=== PATIENT | female | born 1945 | race Caucasian/White ===

== ENCOUNTER 2017-11-06 11:39 | Day surgery (SDC) | payer OTHER, SELFPAY ==
[2017-11-02 07:59] VITALS: BMI 21.7
[2017-11-06] VITALS (8 sets, daily range): BP systolic 91–131; BP diastolic 51–75; PULSE 62–96; RESP 14–16; TEMP 36–37.1; O2SAT 95–97; BMI 21.7
[2017-11-06] MEDS: LACTATED RINGERS 1,000 ML 42 ML IV (12:34)
--- NOTE | 2017-11-06 13:15 | PM.PREOP ---
Pre-operative Note Interval Note Pre-op Check: History & Physical Reviewed by Physician and Exam Performed H&P completed within 30 days and has changed as indicated here:: Patient seen and examined in the preoperative area. History physical examination as documented on 10/31/2017 has not changed. Proceed with examination under anesthesia and possible fistulotomy as planned today.
[2017-11-06] MEDS: CEFOTETAN 2 GM/50 ML PIGGYBACK IV (13:30)
--- NOTE | 2017-11-06 14:03 | SUR.OPER ---
Prone on padded OR bed, head in foam head support, gel chest rolls, gel pad under knees, pillow under lower legs, toes free of pressure, arms secured on gel padded arm boards at <90 degrees abduction. Safety belt at thigh.
[2017-11-06] MEDS: BUPIVACAINE 0.5% (PF) 30 ML VIAL INJ (14:07)
[2017-11-06] MEDS: DIBUCAINE 1% OINT 28 GM 1 APPLIC TOP (14:10)
--- NOTE | 2017-11-06 14:29 | PM.OP.1 ---
Operative Date/Time/Diagnoses - Date of procedure: 11/06/17 Time of procedure: 14:29 Pre-op diagnosis: Anal fistula Post-op diagnosis: same Procedure & Clinicians Procedure: 1. Examination under anesthesia 2. Anoscopy 3. Anal fistulotomy Same procedure as scheduled: Yes Indications: 71-year-old female who presented with drainage from the perianal area. Examination and evaluation were consistent with fistula. She was recommended to undergo examination under anesthesia with potential fistulotomy. Click Yes if Unassisted: Yes Anesthesia Type: General Operative Notes Findings: 1. Perianal fistula superficial to anal sphincter muscles in the left posterior quadrant at approximately 7:00 position 2. No evidence of anal disease or other fistulas 3. No evidence of proctitis 4. No evidence of abscess Closure Type: not applicable (Fistulotomy site left open to heal by secondary intention) Specimen(s): none sent Implants & Drains: None Estimated Blood Loss (mL): 10 Blood products transfused: none Procedure in detail: After obtaining informed consent the patient was brought to the operating room and left supine on the gurney. After satisfactory induction of anesthesia she was placed in prone hernan-knife position. All pressure points were padded appropriately. Buttocks were taped apart. Anal region was prepped and draped in usual sterile fashion. A SCOAP time-out was performed per standard protocol. Digital rectal examination revealed mildly enlarged right lateral external hemorrhoid but without evidence of thrombosis or inflammation. There was a sentinel pile in the left posterior quadrant of the anal region at the 7 o'clock position with a small residual fistula tract in the skin several cm from the anoderm. No expression of pus. No masses. No obvious abscesses. No other abnormalities were appreciated. The Alvaradosal leve anoscope was brought onto the field and meticulous examination was performed. The anal glands and papillae were probed gently. The only significant finding was evidence of a fistula tract extending at the 7 o'clock position into the anal gland at that level. A 00 lacrimal probe was placed through the fistula tract at its distal end point in the skin and gently used to localize the fistula tract. Tract was found to be contiguous with the previously appreciated sentinel pile and associated anal gland. The lacrimal probe was placed entirely through the tract into the anal canal. Great care was taken to avoid creating a false passage. Bovie was used to perform a fistulotomy and the tract was left open. There was no significant granulation or pus present. Great care was taken avoid injury to the underlying sphincter muscle which was exposed but not divided. Hemostasis was achieved with the Bovie. Area was irrigated with copious amounts of sterile saline solution. Hemostasis was once again noted. A large piece of Gel-Foam liberally coated in dubivicaine ointment was placed in the anal rectal canal. Sterile dressing with a mesh undergarment was applied. Patient was returned to the supine position on the [place] where anesthesia was then reversed. She was extubated in the operating room in stable condition. She was taken recovery at that time. Complications: none Condition: stable Disposition: PACU Plan for aftercare: 1. Follow up in 2 weeks in surgery clinic 2. Discharged home today
[2017-11-06] MEDS: OXYCODONE/ACETAMINOPHEN 5/325 TABLET 1 TAB PO (15:45)
== END 2017-11-06 15:59 | disposition home or self-care (01) ==
PROVIDERS: PCP Physician Assistant; Visit Provider Surgery
PROC: (CPT 45990; principal; 2017-11-06 13:00)
PROC: (CPT 46270; 2017-11-06 13:00)
DX: K60.3 Anal fistula (principal); E03.9 Hypothyroidism, unspecified; K64.4 Residual hemorrhoidal skin tags
CPT/HCPCS: 46270; J1100; J2250; J2405; J2704; J3010

== ENCOUNTER → 2018-05-22 10:17 | Outpatient (CLI) | payer OTHER, SELFPAY | PROVIDERS: PCP Physician Assistant; Visit Provider Physician Assistant | DX: M85.88 Other specified disorders of bone density and structure, other site (principal); Z78.0 Asymptomatic menopausal state | CPT/HCPCS: 77080 ==

== ENCOUNTER → 2019-02-20 13:05 | Outpatient (CLI) | payer OTHER, SELFPAY ==
--- NOTE | 2019-02-20 | DI.CT.S_ITS ---
PROCEDURE: CT SOFT TISSUE NECK WO CON INDICATIONS: GENERALIZED HYPERHIDROSIS TECHNIQUE: Non-contrast 3.0 mm axial sections acquired from the sella to the aortic arch. Additional oblique axial 3.0 mm sections acquired through the pharynx. 3 mm thick coronal and sagittal reformats were generated. For radiation dose reduction, the following was used: automated exposure control. COMPARISON: [facility], CT, CT CHEST WO CON, 02/20/2019, 14:14. FINDINGS: Image quality: Excellent. Lymph nodes: No enlarged lymph nodes seen throughout the neck. Vessels: Non-opacified vessels appear normal in caliber. Neck spaces: The oropharynx, nasopharynx, and pharynx demonstrate no mucosal lesions. The vocal cords, false vocal cords, pyriform sinuses, epiglottis, vallecula, and tongue base all appear normal. Extramucosal spaces appear unremarkable. Glands: The parotid and submandibular glands appear normal, without stones. Thyroid gland is normal. Miscellaneous: Visualized brain and orbits appear normal. Lung apices appear clear. There is a 3 mm calcified nodule in the right upper lobe, likely an old granuloma. Superficial soft tissues appear normal. IMPRESSION: 1. Unremarkable noncontrast enhanced CT of neck. 2. A small calcified granuloma in the right upper lobe. Dictated by: Audrey Mujica M.D. on 02/20/2019 at 18:54 Approved by: Audrey Mujica M.D. on 02/20/2019 at 18:57
--- NOTE | 2019-02-20 | DI.CT.S_ITS ---
PROCEDURE: CT CHEST WO CON INDICATIONS: GENERALIZED HYPERHIDROSIS TECHNIQUE: Noncontrast 5 mm thick sections acquired from the pulmonary apices to the posterior costophrenic angles. 1 mm lung window, 5 mm thick coronal and sagittal and 7 mm axial MIP reformats were then acquired. For radiation dose reduction, the following was used: automated exposure control, adjustment of mA and/or kV according to patient size. COMPARISON: [facility], CT, CT ABDOMEN PELVIS W CON, 02/20/2019, 14:14. FINDINGS: Image quality: Excellent. Lungs and pleura: No acute air space opacities. No pleural effusions or pneumothorax. Central and peripheral airways are patent and normal in caliber. Mediastinum: Heart size is normal. No pericardial effusion. No mediastinal adenopathy by size criteria. Shotty lymph nodes in mediastinum likely reactive. Thoracic aorta and central pulmonary arteries are normal in size. Esophagus is normal in caliber. No hiatal hernia. Bones and chest wall: No suspicious bony lesions. No vertebral body compression fractures. No axillary or supraclavicular adenopathy by size criteria. Thyroid gland is normal. Abdomen: Visualized upper abdominal solid organs and bowel loops appear normal in the absence of contrast. IMPRESSION: 1. No acute findings on this non-contrast head CT. Dictated by: Audrey Mujica M.D. on 02/20/2019 at 18:58 Approved by: Audrey Mujica M.D. on 02/20/2019 at 18:59
--- NOTE | 2019-02-20 | DI.CT.S_ITS ---
PROCEDURE: CT ABDOMEN PELVIS W CON INDICATIONS: GENERALIZED HYPERHIDROSIS TECHNIQUE: After the administration of oral and intravenous contrast, 5 mm thick sections acquired from the diaphragms to the symphysis. 5 mm thick coronal and sagittal reformats were performed. For radiation dose reduction, the following was used: automated exposure control, adjustment of mA and/or kV according to patient size. COMPARISON: [facility], CT, CHEST ANGIO-PE, 09/29/2010, 21:02. FINDINGS: Image quality: Excellent. ABDOMEN: Lung bases: Lung bases are clear. Circumferential distal esophageal wall thickening. Heart size is normal. Solid organs: Mild hepatic steatosis Gallbladder contracted otherwise unremarkable. Biliary system is non-dilated. Pancreas enhances normally. Spleen is normal in size and enhancement. No adrenal nodules. Bilateral nephrolithiasis measuring up to 7 mm on the left and 4 mm on the right. 1 cm right renal cyst. Mild left hydronephrosis. No perinephric stranding. No definite ureteral calculus identified. No bladder calculus seen. Peritoneum and bowel: Stomach, small bowel, and colon loops are normal in caliber and wall thickness. No free fluid or air. Appendix is not clearly identified however no suspicious pericecal inflammatory changes are seen. Incidental colonic diverticulosis. Nodes and vessels: No retroperitoneal or mesenteric adenopathy. Aorta and inferior vena cava are normal in caliber. Miscellaneous: No ventral hernias. PELVIS: Genitourinary: Bladder partially decompressed otherwise unremarkable. Pelvic phleboliths incidentally noted Miscellaneous: No inguinal hernias or adenopathy. Bones: Age-indeterminate L3 compression fracture with mild anterior height loss. IMPRESSION: Bilateral nephrolithiasis as above. Mild left hydronephrosis however the exact etiology is unclear. No definite ureteral or bladder calculus seen. Theoretically, recently passed left-sided calculus is in the differential. Mild hepatic steatosis. Mild circumferential distal esophageal wall thickening, technically nonspecific although neoplastic etiologies could be excluded with endoscopy depending on clinical suspicion Additional chronic and incidental findings as above. Dictated by: Tian Garcia M.D. on 02/20/2019 at 16:09 Approved by: Tian Garcia M.D. on 02/20/2019 at 16:19
[2019-02-20 13:19] LABS: Bacteria Urine None Seen; RBC Urine None Seen (0-5/HPF); WBC Urine None Seen (0-5/HPF)
[2019-02-20 13:50] LABS: Alanine Aminotransferase 27 IU/L (9-52); Albumin 4.5 g/dL (3.5-5.0); Albumin Globulin Ratio 1.3 (1.0-2.8); Alkaline Phosphatase 106 U/L (38-126); Aspartate Aminotransferase 36 IU/L (14-36); BUN Creatinine Ratio 28.6 (6-22); Bilirubin Total 0.5 mg/dL (0.2-1.3); Blood Urea Nitrogen 20 mg/dL (7-17); Calcium 9.5 mg/dL (8.4-10.2); Carbon Dioxide 30 mmol/L (22-32); Chloride 103 mmol/L (98-107); Estimated Glomerular Filt Rate > 60.0 mL/min (>60); Globulin 3.4 g/dL (1.7-4.1); Glucose 98 mg/dL (80-110); HEMOLYSIS 18 (0-50); Potassium 4.8 mmol/L (3.4-5.1); Sodium 142 mmol/L (137-145); Total Protein 7.9 g/dL (6.3-8.2)
[2019-02-20 13:52] LABS: Appearance Urine UA CLEAR; Bilirubin Urine UA NEGATIVE (NEGATIVE); Color Urine UA YELLOW; Glucose Urine UA NEGATIVE (Negative); Hemoglobin 15.6 g/dL (12.0-16.0); Ketones Urine UA NEGATIVE (NEGATIVE); Leukocyte Esterase Urine UA NEGATIVE (NEGATIVE); Mean Corpuscular Hemoglobin 30.6 PG (26-34); Nitrite Urine UA NEGATIVE (Negative); Occult Blood Urine UA NEGATIVE (Negative); Protein Urine UA NEGATIVE (Negative); Urobilinogen Urine UA 0.2 E.U./dL (0.2)
[2019-02-20 14:04] LABS: Cholesterol 219 mg/dL (140-199); Creatine Kinase 49 U/L (30-135); HDL Cholesterol 52 mg/dL (40-60); LDL Cholesterol Calculated 116 mg/dL (<100); Lactate Dehydrogenase 437 U/L (313-618); Triglycerides 256 mg/dL (35-150)
[2019-02-20 14:06] LABS: Culture Indicated Urine Cult Not Indicated; Urine Comments Microscopic Normal
[2019-02-20 14:07] LABS: Hematocrit 46.9 % (36-46); Mean Corpuscular HGB Conc 33.3 % (30-36); Mean Corpuscular Volume 91.8 fL (80-100); Platelet Count 176 X10^3/uL (150-400); Red Blood Cell Count 5.11 X10^6/uL (4.0-5.2); Red Cell Distribution Width 13.1 % (11.6-14.8); White Blood Cell Count 7.6 X10^3/uL (4.5-11.0)
[2019-02-20 14:30] LABS: Erythrocyte Sedimentation Rate 6 MM/HR (0-20)
[2019-02-20 15:32] LABS: TSH w/ Reflex to FT4 2.84 uIU/mL (0.47-4.68)
[2019-02-20 16:22] LABS: C-Reactive Protein Quant < 0.5 mg/dL (<1.0)
[2019-02-20 17:17] LABS: Neutrophils Absolute Manual 4332 /uL (3000-5900); RBC Morphology Normal Morphology; Total Cells Counted 100
[2019-02-24 07:40] LABS: Aldolase 3.4 U/L (< 8.2)
== END ==
PROVIDERS: PCP Physician Assistant; Visit Provider Internal Medicine
DX: R59.0 Localized enlarged lymph nodes (principal); R61 Generalized hyperhidrosis; R25.2 Cramp and spasm; E78.5 Hyperlipidemia, unspecified; K76.0 Fatty (change of) liver, not elsewhere classified; N13.2 Hydronephrosis with renal and ureteral calculous obstruction; N28.1 Cyst of kidney, acquired; K57.90 Diverticulosis of intestine, part unspecified, without perforation or abscess without bleeding; R91.1 Solitary pulmonary nodule; K44.9 Diaphragmatic hernia without obstruction or gangrene; M48.56XS Collapsed vertebra, not elsewhere classified, lumbar region, sequela of fracture
CPT/HCPCS: 36415; 70490; 71250; 74177; 80053; 80061; 81001; 82085; 82550; 83615; 84443; 85025; 85651; 86140; Q9967